=== PATIENT | female | born 1955 | race Caucasian/White ===

== ENCOUNTER 2021-11-14 17:06 | Outpatient (REF) | payer MEDICARE, SELFPAY ==
--- NOTE | 2021-11-14 15:40 | SKI_PTH ---
PATIENT: Leatha Hernandez LOC: [facility] U#:[id number] AGE/SX: 66/F ROOM: RE11/14/[address]: AKUA Garber : 1955 BED: DIS: 11/14/2021 SPEC #: [id number] RECD: 11/17/21 12:48 STATUS: KAREN REQ #: [id number] ABDIFATAH: 11/14/21 15:[address]: Perez Loera DEPT: Surgical Specimen RECD BY: Ayesha Barnard ENTERED: 11/17/21 12:48 SP TYPE: CALEB SILVA DR: Iman Chavez Tissues: 1 - SKIN BIOPSY(SHAVE/PUNCH) Procedures: SKIN LEVEL 4 Comments: [id number]
== END 2021-11-14 17:07 | disposition home or self-care (01) ==
LOC: LBN 17:06
PROVIDERS: PCP Nurse Practitioner; Visit Provider Physician Assistant
DX: D22.5 Melanocytic nevi of trunk (principal)
CPT/HCPCS: 88305